=== PATIENT | female | born 1970 | race Caucasian/White ===

== ENCOUNTER 2016-06-15 09:06 | Inpatient (IN) | payer MEDICAID ==
[~2016-06-15] VITALS: Ht 152.4 cm; Wt 62.8 kg
[~2016-06-15 09:06] MED LIST: CIPR500T4 PO; HYDR-3498 PO; IBUP-1542 PO; IBUP800T25 PO
[2016-06-15] MEDS ORDERED: ASPIRIN 81 MG TAB PO STA (09:56)
[2016-06-15] MEDS ORDERED: NITROGLYCERIN 2% 1 GM OINT PKT TD STA (09:56)
[2016-06-15] MEDS ORDERED: NITROGLYCERIN (SL) 0.4 MG TAB SL PRN (10:00)
[2016-06-15] MEDS ORDERED: ONDANSETRON 4 MG INJ IV STA (10:00)
--- NOTE | 2016-06-15 10:55 | RADRPT ---
PROCEDURE: US Abdomen (right upper quadrant). CLINICAL INDICATION: Epigastric pain TECHNIQUE: Multiple real-time longitudinal and transverse images of the right upper quadrant of th e abdomen were acquired utilizing a curved array transducer. Images were reviewed on a high-resoluti on PACS workstation. COMPARISON: None FINDINGS: The liver is normal in size and demonstrates normal echogenicity. No focal intrahepatic mass is id entified. The gallbladder is normal in appearance. There is no pericholecystic fluid or gallbladde r wall thickening. No intra or extrahepatic biliary dilatation is seen. The common bile duct measur es 3.4 mm in maximal dimension. The portal and hepatic veins are patent demonstrating normal directi onal flow. The visualized portions of the pancreas are unremarkable with obscuration of the tail of the pancreas. No free fluid is identified. The right kidney measures 9.7 cm in length. There is normal echogenicity within the right kidney. There is no perinephric fluid collection. No hydronephrosis, mass, or calculus is seen. IMPRESSION: 1. Unremarkable right upper quadrant ultrasound. RPTAT: .Yina Alas MD, Date Time Electronically viewed and signed by .Yina Alas MD, on 06/15/2016 10:54 .G/
--- NOTE | 2016-06-15 11:15 | RADRPT ---
PROCEDURE: Chest x-ray CLINICAL INDICATION: Chest pain TECHNIQUE: Chest single view COMPARISON: None FINDINGS: The heart is normal in size. The pulmonary vessels are normal in caliber. The lungs are clear. Th e costophrenic angles are sharp. The visualized bony thorax is unremarkable. IMPRESSION: No acute cardiopulmonary disease. RPTAT: HH .Juan Saunders MD, Date Time Electronically viewed and signed by .Juan Saunders MD, MD on 06/15/2016 11:14 .W/
[2016-06-15 11:41] LABS: ADD SCAN DIFF NO
[2016-06-15 11:45] LABS: BASOPHILS % 0.4 % (0.0-2.0); EOSINOPHILS # 0.1 10^3/ul (0.0-0.5); EOSINOPHILS % 0.9 % (0.0-7.0); HEMATOCRIT 39.1 % (37.0-47.0); HEMOGLOBIN 12.5 g/dl (12.0-16.0); LYMPHOCYTES # 1.1 10^3/ul (0.8-2.9); MEAN CORPUSCULAR HEMOGLOBIN 27.4 pg (29.0-33.0); MEAN CORPUSCULAR VOLUME 85.6 fl (82.0-101.0); MEAN PLATELET VOLUME 8.8 fl (7.4-10.4); MONOCYTE # 0.2 10^3/ul (0.3-0.9); MONOCYTES % 3.3 % (0.0-11.0); NEUTROPHIL # 4.3 10^3/ul (1.6-7.5); NEUTROPHILS % 74.7 % (39.0-77.0); PLATELET COUNT 319 10^3/UL (140-415); RED BLOOD COUNT 4.57 10^6/ul (4.20-5.40); RED CELL DISTRIBUTION WIDTH 12.3 % (11.5-14.5); WHITE BLOOD COUNT 5.7 10^3/ul (4.8-10.8)
[2016-06-15 11:58] LABS: PROTIME 13.2 Sec (12.2-14.2)
[2016-06-15 11:59] LABS: PARTIAL THROMBOPLASTIN TIME 22.8 Sec (25.0-35.0)
[2016-06-15 12:01] LABS: CHLORIDE 108 mmol/L (97-110); POTASSIUM 3.6 mmol/L (3.5-5.1); SODIUM 146 mmol/L (135-144)
[2016-06-15 12:04] LABS: ANION GAP 23 (8-16); BLOOD UREA NITROGEN 12 mg/dl (7-20); CARBON DIOXIDE 19 mmol/L (21-31); CREATININE 0.62 mg/dl (0.44-1.00); GLUCOSE 120 mg/dl (70-220)
[2016-06-15 12:05] LABS: CALCIUM 9.6 mg/dl (8.4-10.2)
[2016-06-15 12:19] LABS: TROPONIN-I < 0.012 ng/ml (0.00-0.12)
[2016-06-15] MEDS ORDERED: ONDANSETRON 4 MG INJ IV PRN ×2 (12:30→14:00)
[2016-06-15] MEDS ORDERED: ACETAMINOPHEN 325 MG TAB PO PRN ×2 (12:30→14:00)
[2016-06-15 12:34] LABS: ALBUMIN 4.9 g/dl (3.3-4.9)
[2016-06-15 12:37] LABS: BILIRUBIN,INDIRECT 0.4 mg/dl (0-1.1); BILIRUBIN,TOTAL 0.4 mg/dl (0.2-1.3); TOTAL PROTEIN 8.4 g/dl (6.1-8.1)
[2016-06-15] MEDS ORDERED: SITA100T8 PO (12:44)
--- NOTE | 2016-06-15 13:09 | ERA ---
ER Documentation Chief Complaint Date/Time DATE: 06/15/16 TIME: 13:07 Chief Complaint n/v x alferd with dizziness HPI Patient is a 45-year-old female with diabetes and hypertension who presents with chest pain. She has never had this in the past. The pain is in the mid chest. The symptoms started today. She feels dizzy and has nausea. She was complaining of shortness of breath as well. She does not know the name of her primary doctor. She has had no treatment as of yet. ROS All systems reviewed and are negative except as per history of present illness. Medications Home Meds Reported Medications Sitagliptin* (Januvia*) 100 Mg Tablet, 100 MG PO QAM, #30 TAB 06/15/16 Discontinued Scripts Ibuprofen* (Motrin*) 600 Mg Tab, 600 MG PO Q6H Y for PAIN AND OR ELEVATED TEMP, #30 TAB Prov:JUAN DIEGO GAINES. TUBE BENDER HAND 10/04/15 Ciprofloxacin Hcl* (Ciprofloxacin Hcl*) 500 Mg Tablet, 500 MG PO BID for 7 Days , TAB Prov:DRAKE GRAHAM 01/18/15 Ibuprofen* (Ibuprofen*) 800 Mg Tablet, 800 MG PO Q6H Y for PAIN, #20 TAB Prov:SANTOS,DRAKE 01/18/15 Hydrocodone Bit-Acetaminophen* (Rodman*) 5-325 Mg Tab, 1 TAB PO Q4H Y for PAIN LEVEL 6-10, #20 TAB Prov:DRAKE GRAHAM 01/18/15 Allergies Allergies: Coded Allergies: No Known Allergy (Unverified , 06/15/16) PMhx/Soc Medical and Surgical Hx: pt denies Medical Hx, pt denies Surgical Hx History of Surgery: No Anesthesia Reaction: No Hx Neurological Disorder: No Hx Respiratory Disorders: No Hx Cardiac Disorders: No Hx Psychiatric Problems: No Hx Miscellaneous Medical Probl: Yes (DM) Hx Alcohol Use: No Hx Substance Use: No Hx Tobacco Use: No Smoking Status: Never smoker FmHx Family History: No diabetes Physical Exam Vitals Vital Signs Date Time Temp Pulse Resp B/P Pulse Ox O2 Delivery O2 Flow Rate FiO2 06/15/16 09:10 98.3 93 18 149/78 100 Physical Exam Const: No acute distress Head: Atraumatic Eyes: Normal Conjunctiva ENT: Normal External Ears, Nose and Mouth. Neck: Full range of motion..~ No meningismus. Resp: Clear to auscultation bilaterally Cardio: Regular rate and rhythm, no murmurs Abd: Soft, non tender, non distended. Normal bowel sounds Skin: No petechiae or rashes Back: No midline or flank tenderness Ext: No cyanosis, or edema Neur: Awake and alert Psych: Normal Mood and Affect Result Diagram: 06/15/16 1125 06/15/16 1125 Results 24 hrs Laboratory Tests Test 06/15/16 11:25 Activated Partial Thromboplast Time 22.8Sec Alanine Aminotransferase (ALT/SGPT) 30IU/L Albumin 4.9g/dl Alkaline Phosphatase 71IU/L Anion Gap 23 Aspartate Amino Transf (AST/SGOT) 30IU/L Basophils # 0.010^3/ul Basophils % 0.4% Blood Urea Nitrogen 12mg/dl Calcium Level 9.6mg/dl Carbon Dioxide Level 19mmol/L Chloride Level 108mmol/L Creatinine 0.62mg/dl Direct Bilirubin 0.00mg/dl Eosinophils # 0.110^3/ul Eosinophils % 0.9% Glucose Level 120mg/dl Hematocrit 39.1% Hemoglobin 12.5g/dl INR International Normalized Ratio 1.00 Indirect Bilirubin 0.4mg/dl Lipase 73U/L Lymphocytes # 1.110^3/ul Lymphocytes % 20.0% Mean Corpuscular Hemoglobin 27.4pg Mean Corpuscular Hemoglobin Concent 32.0g/dl Mean Corpuscular Volume 85.6fl Mean Platelet Volume 8.8fl Monocytes # 0.210^3/ul Monocytes % 3.3% Neutrophils # 4.310^3/ul Neutrophils % 74.7% Nucleated Red Blood Cells # 0.010^3/ul Nucleated Red Blood Cells % 0.0/100WBC Platelet Count 28435^3/UL Potassium Level 3.6mmol/L Prothrombin Time 13.2Sec Prothrombin Time Ratio 1.0 Red Blood Count 4.5710^6/ul Red Cell Distribution Width 12.3% Sodium Level 146mmol/L Total Bilirubin 0.4mg/dl Total Protein 8.4g/dl Troponin I < 0.012ng/ml White Blood Count 5.710^3/ul Current Medications Medications (Trade) Dose Ordered Sig/Anselmo Route PRN Reason Start Time Stop Time Status Last Admin Dose Admin Aspirin (Aspirin) 162 mg ONCE STAT PO 06/15/16 09:56 06/15/16 09:57 DC 06/15/16 10:21 Nitroglycerin (Nitroglycerin 2% Oint) 1 inch ONCE STAT TD 06/15/16 09:56 06/15/16 09:57 DC 06/15/16 10:53 Nitroglycerin (Nitroglycerin (Sl Tab) 0.4 Mg) 1 tab Q5M UP TO 3 DOSES PRN SL CHEST PAIN 06/15/16 10:00 06/15/16 10:21 Ondansetron HCl (Zofran Inj) 4 mg ONCE STAT IV 06/15/16 10:00 06/15/16 10:02 DC 06/15/16 10:21 Ondansetron HCl (Zofran Inj) 4 mg ER BRIDGE PRN IV NAUSEA AND/OR VOMITING 06/15/16 12:30 06/16/16 12:29 Acetaminophen (Tylenol Tab) 650 mg ER BRIDGE PRN PO MILD PAIN/FEVER 06/15/16 12:30 06/16/16 12:29 Procedures/MDM Ultrasound of the gallbladder negative per radiology. Chest x-ray negative per radiology. EKG read by me: Rate/Rhythm: Regular rate and rhythm at a normal rate Intervals: Normal Impression: No evidence of ischemia or arrhythmia Patient is a 45-year-old female with diabetes and hypertension who presents with chest pain and nausea. Given her risk factors I am concerned about potential acute coronary syndrome. The patient will need admission for cardiac workup. I spoke with Dr. Higuera from the panel team for admission to a telemetry bed. The patient was given aspirin nitroglycerin empirically as well as Zofran. Ultrasound of gallbladder was negative for gallbladder disease. I doubt pneumonia, pneumothorax, pulmonary embolism, or aortic dissection. Departure Diagnosis: Primary Impression: Chest pain Qualified Code: R07.9 - Chest pain, unspecified type Additional Impression: Nausea and vomiting Qualified Code: R11.2 - Non-intractable vomiting with nausea, unspecified vomiting type Condition: KAYLEE Crespo MD Jun 15, 2016 13:09
[2016-06-15] MEDS ORDERED: HYDROCODONE/APAP (5/325) TAB PO PRN ×2 (14:00)
[2016-06-15] MEDS ORDERED: GLUCAGON 1 MG INJ IM PRN (14:00)
[2016-06-15] MEDS ORDERED: DEXTROSE 50% 50 ML SYRINGE IV PRN ×2 (14:00)
[2016-06-15] MEDS ORDERED: ACETAMINOPHEN 650 MG SUPP PR PRN (14:00)
[2016-06-15] MEDS ORDERED: morphine 2 MG INJ IV PRN (14:00)
[2016-06-15] MEDS ORDERED: BISACODYL 10 MG SUPP PR PRN (14:00)
[2016-06-15] MEDS ORDERED: GLUCOSE GEL 15 GRAM TUBE PO PRN ×2 (14:00)
[2016-06-15] MEDS ORDERED: NACL 0.9% 3 ML SYG IV SCH (14:00)
[2016-06-15] MEDS ORDERED: DOCUSATE SODIUM 100 MG CAP PO PRN (14:00)
[2016-06-15] MEDS ORDERED: GLUCOSE GEL 15 GRAM TUBE BUCCAL PRN (14:00)
[2016-06-15 16:47] LABS: CREATINE KINASE 88 IU/L (23-200)
[2016-06-15 17:00] LABS: CK-MB < 0.22 ng/ml (0.0-2.4); TROPONIN-I < 0.012 ng/ml (0.00-0.12)
--- NOTE | 2016-06-15 17:49 | HP ---
DATE OF ADMISSION: 06/15/2016 CHIEF COMPLAINT: Chest pain. HISTORY OF PRESENT ILLNESS: This is a 45-year-old female with reported history of prediabetes and a lso obesity who came into [facility] due to reports of chest pain. According to gene cortez patient, she had been having chest pain roughly since Tuesday06/12/2016. She did report that [place] chest pain was intermittent and also pressure-like in nature, nonradiating. She also did report that at times it was also reproducible upon palpation. She did report that she woke up on the morni ng of 06/15/2016, again with reports of pain that was not necessarily notable on exertion but did scales ve it intermittently. Again, she did report that this chest pain was pressure like in nature, 7/10 in intensity, nonradiating. She did have some associated nausea and vomiting with it. No reported sick contacts. She did go to [facility] due to the aforementioned issues. Upon f urther examination, she did have troponins x2 drawn which were essentially negative. Chest x-ray th at she did have done showed no acute cardiopulmonary disease. The patient also did have some nausea and vomiting for which we did get a gallbladder ultrasound that was unremarkable for any kind of ri ght upper quadrant abdominal pain. Additionally, her lipase levels were also noted to be normal. Gene cortez patient also of note had serum HCG which was negative as well. Currently, the patient does repor t having intermittent chest pain. This pain is reproducible upon palpation. She does report not scales ving any significant history of family heart disease, although she does not have any confirmation of this. We will evaluate her for the aforementioned issues. MEDICAL AND SURGICAL HISTORY 1. Reported diabetes. 2. Reported dyslipidemia. SOCIAL HISTORY: Patient denies any cigarette smoking, alcohol consumption or illicit drug use. FAMILY HISTORY: Noncontributory. ALLERGIES: NO KNOWN ALLERGIES. REVIEW OF SYSTEMS: A 12-point review of systems obtained and is entirely negative except as mention ed in the history of present illness. PHYSICAL EXAMINATION: VITAL SIGNS: Temperature 97.7, pulse is 78, respiratory rate is 16, blood pressure 106/62, pulse ox imetry 100% on room air. GENERAL: This is a 45-year-old female who appears stated age, no acute signs or symptoms of distres s at this time. EYES: Pupils equal, round and reactive to light. Anicteric sclerae. NECK: Supple, nontender. No JVD. CARDIAC: S1, S2 auscultated, regular rate to tachycardic. PULMONARY: Clear to auscultation bilaterally. No wheezing or rhonchi. ABDOMEN: Soft, nontender, nondistended. EXTREMITIES: No pitting edema in bilateral lower extremities. SKIN: Warm, dry, and intact. NEUROLOGIC: Alert, oriented x3. LABORATORY DATA: WBC is 5.7, hemoglobin is 12.5, hematocrit 39.1 and platelets 319. Sodium is 146, potassium 3.6, BUN is 12, creatinine 0.62. IMAGIN. Chest x-ray done on 06/15/2016 showed no acute cardiopulmonary disease. 2. Gallbladder ultrasound done on 06/15/2016 showed unremarkable right upper quadrant ultrasound. IMPRESSION AND PLAN: 1. Chest pain. Follow up on echocardiogram. We will follow up on serial troponins upon transfer t o telemetry. Rule out acute coronary syndrome. 2. Prediabetes. Monitor blood glucose. Will provide with insulin regimen as needed. Lifestyle mo difications to be advised. 3. Gastroesophageal reflux disease prophylaxis: H2 nitish. 4. Deep venous thrombosis prophylaxis, sequential compression devices. ADMISSION PROCESS TIME: 40 minutes. Discussed plan of care with Dr. Bond. Dictated By: DIA NORTON QUALITY TECH for AROLDO FUCHS/MARICEL Conf#: [id number] DID#: [id number]
[2016-06-15] MEDS: INSULIN ASPART [NOVOLOG] 3 ML PEN SC SCH ×2 (18:00→21:00)
[2016-06-15 18:08] VITALS: TEMP 98.1
[2016-06-15 20:46] VITALS: BMI 27.1
[2016-06-15 20:51] VITALS: BP 112/74; PULSE 73; RESP 20
[2016-06-15] MEDS: FAMOTIDINE 20 MG INJ IV SCH (21:09)
[2016-06-15 22:32] LABS: CREATINE KINASE 94 IU/L (23-200)
[2016-06-15 22:47] LABS: CK-MB < 0.22 ng/ml (0.0-2.4)
[2016-06-15 23:07] VITALS: PULSE 83
[2016-06-15 23:30] VITALS: BP 132/79; PULSE 71; RESP 18
[2016-06-15 23:42] VITALS: Ht 152.4 cm; Wt 62.8 kg
[2016-06-16] VITALS (11 sets, daily range): BP systolic 129–144; BP diastolic 69–87; PULSE 65–74; RESP 18–19
[2016-06-16 01:28] LABS: TROPONIN-I 0.013 ng/ml (0.00-0.12)
[2016-06-16 07:04] LABS: ADD SCAN DIFF NO
[2016-06-16 07:07] LABS: ALBUMIN 4.4 g/dl (3.3-4.9)
[2016-06-16 07:08] LABS: POTASSIUM 3.9 mmol/L (3.5-5.1)
[2016-06-16 07:10] LABS: ALBUMIN/GLOBULIN RATIO 1.51; BILIRUBIN,INDIRECT 0.5 mg/dl (0-1.1); BILIRUBIN,TOTAL 0.5 mg/dl (0.2-1.3); CREATININE 0.65 mg/dl (0.44-1.00); TOTAL PROTEIN 7.3 g/dl (6.1-8.1)
[2016-06-16 07:11] LABS: CALCIUM 9.3 mg/dl (8.4-10.2); CHOL/HDL RATIO 4.1 RATIO; PHOSPHORUS 3.9 mg/dl (2.5-4.9)
[2016-06-16 07:20] LABS: BASOPHILS % 0.5 % (0.0-2.0); EOSINOPHILS # 0.1 10^3/ul (0.0-0.5); EOSINOPHILS % 2.1 % (0.0-7.0); HEMATOCRIT 36.5 % (37.0-47.0); MEAN CORPUSCULAR HGB CONC 32.9 g/dl (32.0-37.0); MEAN CORPUSCULAR VOLUME 85.3 fl (82.0-101.0); MEAN PLATELET VOLUME 9.1 fl (7.4-10.4); MONOCYTE # 0.4 10^3/ul (0.3-0.9); MONOCYTES % 6.8 % (0.0-11.0); NEUTROPHIL # 3.5 10^3/ul (1.6-7.5); NEUTROPHILS % 57.3 % (39.0-77.0); PLATELET COUNT 326 10^3/UL (140-415); RED BLOOD COUNT 4.28 10^6/ul (4.20-5.40); RED CELL DISTRIBUTION WIDTH 12.4 % (11.5-14.5); WHITE BLOOD COUNT 6.2 10^3/ul (4.8-10.8)
[2016-06-16 07:28] LABS: T3 UPTAKE 34.8 % (23.5-40.5)
[2016-06-16 07:42] LABS: THYROID STIMULATING HORMONE 3.48 MIU/L (0.465-4.680)
[2016-06-16 07:45] LABS: CALCIUM 9.4 mg/dl (8.4-10.2); CREATININE 0.67 mg/dl (0.44-1.00)
[2016-06-16] MEDS: INSULIN ASPART [NOVOLOG] 3 ML PEN SC SCH ×4 (08:00→20:53)
[2016-06-16] MEDS: FAMOTIDINE 20 MG INJ IV SCH (08:36)
--- NOTE | 2016-06-16 19:14 | RADRPT ---
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 Physician: DIA NORTON Quality: Adequate Procedures: Transthoracic echocardiogram with complete 2D, M-Mode, and doppler examination. Indications: Chest Pain. 2D/M Mode Doppler Measurement Value Normal Ranges Measurement Value Normal Ranges LVIDd 2D 4.7 3.5 - 5.6 cm AV Peak Jaiden 1.4 m/sec LVIDs 2D 2.9 2.1 - 4.1 cm AV Peak PG 8.0 mmHg LVPWd 2D 0.8 0.6 - 1.1 cm LVOT Peak Jaiden 1.0 m/sec IVSd 2D 0.9 0.6 - 1.1 cm LVOT Peak PG 3.8 mmHg AoR Diam 2D 2.4 2.0 - 3.7 cm MV E Peak Jaiden 1.0 m/sec EDV 2D 103.3 cm3 MV A Peak Jaiden 0.8 m/sec ESV 2D 25.5 cm3 MV E/A 1.3 LA Dimen 2D 3.3 2.3 - 4.0 cm MV Decel Time 171 msec MV Decel [place] 6 MV E/A 1.3 Findings Left Ventricle: Normal left ventricular systolic function. Normal left ventricular cavity size. Normal left ventricular wall thickness. Ejection fraction is visually estimated at 65 %. Abnormal Diastolic Function. Right Ventricle: Normal right ventricular size. Normal right ventricular systolic function. Left Atrium: The left atrium is normal in size. Right Atrium: The right atrium is normal in size. Mitral Valve: Mild mitral leaflet calcification. Trace mitral regurgitation. Aortic Valve: Trileaflet aortic valve. Trace aortic valve regurgitation. Tricuspid Valve: Normal appearance and function of the tricuspid valve with trace physiologic regurgitation. Pulmonic Valve: There is trace pulmonic regurgitation. Pericardium: Normal pericardium with no significant pericardial effusion. Aorta: Normal aortic root. IVC: Normal size and normal respiratory collapse consistent with normal right atrial pressure. Conclusions 1.Normal left ventricular systolic function. Normal left ventricular cavity size. Normal left ventricular wall thickness. Ejection fraction is visually estimated at 65 %. Abnormal Diastolic Function. 2.Normal right ventricular size. Normal right ventricular systolic function. 3.Mild mitral leaflet calcification. Trace mitral regurgitation. 4.Trileaflet aortic valve. Trace aortic valve regurgitation. 5.Normal appearance and function of the tricuspid valve with trace physiologic regurgitation. 6.There is trace pulmonic regurgitation. Electronically Signed By: Levon Knox 16-Jun-2016 19:13:02 -0700 Patient Name: BARRIE MEJIA Study Date: 15-Jun-2016 [id number]
[2016-06-16] MEDS: FAMOTIDINE 20 MG TAB PO SCH (20:54)
[2016-06-17] VITALS (10 sets, daily range): BP systolic 117–130; BP diastolic 64–77; PULSE 56–88; RESP 18–21
[2016-06-17] MEDS: INSULIN ASPART [NOVOLOG] 3 ML PEN SC SCH ×3 (08:00→18:05)
[2016-06-17] MEDS: FAMOTIDINE 20 MG TAB PO SCH (09:00)
--- NOTE | 2016-06-17 15:36 | PN ---
Date/Time of Note Date/Time of Note LATE ENTRY DATE: 06/16/16 Assessment/Plan VTE Prophylaxis VTE Prophylaxis Intervention: SCD's Lines/Catheters IV Catheter Type (from Nrsg): Saline Lock Urinary Cath still in place: No Assessment/Plan Chief Complaint/Hosp Course 1. Chest pain. Awaiting echocardiogram. monitor troponin. cont telemetry monitoring. 2. Prediabetes. Monitor blood glucose. Lifestyle modifications was advised 3. Gastroesophageal reflux disease prophylaxis: H2 nitish. 4. Deep venous thrombosis prophylaxis, sequential compression devices. DISPO/PLAN: Awaiting echocardiogram. cont telemetry monitoring. d/c when medically stable Discussed plan of care with Dr. Bond Problems: Subjective 24 Hr Interval Summary Free Text/Dictation no s/s of distress. comfortable at present Exam/Review of Systems Vital Signs Vitals Vital Signs Date Time Temp Pulse Resp B/P Pulse Ox O2 Delivery O2 Flow Rate FiO2 06/17/16 13:48 56 06/17/16 12:20 97.7 18 123/74 100 06/17/16 04:00 Room Air Intake and Output 06/16/16 06/16/16 06/17/16 14:59 22:59 06:59 Intake Total 900 ml 400 ml Balance 900 ml 400 ml Exam Constitutional: alert, oriented Psych: nl mood/affect Head: normocephalic Eyes: nl conjunctiva Neck: supple, non-tender, No jvd Respiratory: clear to auscultation, normal air movement Cardiovascular: regular rate and rhythm Gastrointestinal: soft, non-tender Musculoskeletal: nl extremities to inspection, nl gait and stance Extremities: normal pulses Neurological: nl mental status, nl speech, nl strength Skin: nl turgor, Results Result Diagram: 06/16/16 0557 06/16/16 0557 Results 24 hrs Laboratory Tests Test 06/16/16 18:30 06/16/16 20:53 06/17/16 08:07 Bedside Glucose 141 90 99 Medications Medications Current Medications Ondansetron HCl (Zofran Inj) 4 mg Q6H PRN IV NAUSEA AND/OR VOMITING; Start at 14:00 Acetaminophen (Tylenol Tab) 650 mg Q6H PRN PO PAIN LEVEL 1-3 OR FEVER; Start at 14:00 Acetaminophen (Tylenol Supp) 650 mg Q6H PRN AR PAIN LEVEL 1-3 OR FEVER; Start 06/15/16 at 14:00 Acetaminophen/ Hydrocodone Bitart ([place] (5/325)) 1 tab Q6H PRN PO MODERATE PAIN LEVEL 4-6; Start 06/15/16 at 14:00 Acetaminophen/ Hydrocodone Bitart ([place] (5/325)) 2 tab Q6H PRN PO SEVERE PAIN LEVEL 7-10; Start 06/15/16 at 14:00 Morphine Sulfate (morphine) 2 mg Q4H PRN IV SEVERE PAIN LEVEL 7-10; Start 06/15 at 14:00 Docusate Sodium (Colace) 100 mg Q12H PRN PO CONSTIPATION; Start 06/15/16 at 14: 00 Bisacodyl (Dulcolax Supp) 10 mg DAILY PRN AR CONSTIPATION; Start 06/15/16 at 14 :00 Miscellaneous Information 1 ea NOTE XX ; Start 06/15/16 at 14:00 Glucose (Glutose) 15 gm Q15M PRN PO DECREASED GLUCOSE; Start 06/15/16 at 14:00 Glucose (Glutose) 22.5 gm Q15M PRN PO DECREASED GLUCOSE; Start 06/15/16 at 14: 00 Dextrose (D50w Syringe) 25 ml Q15M PRN IV DECREASED GLUCOSE; Start 06/15/16 at 14:00 Dextrose (D50w Syringe) 50 ml Q15M PRN IV DECREASED GLUCOSE; Start 06/15/16 at 14:00 Glucagon (Glucagen) 1 mg Q15M PRN IM DECREASED GLUCOSE; Start 06/15/16 at 14:00 Glucose (Glutose) 15 gm Q15M PRN BUCCAL DECREASED GLUCOSE; Start 06/15/16 at 14 :00 Famotidine (Pepcid) 20 mg BID PO Last administered on 06/16/16t 20:54; Admin Dose 20 MG; Start 06/16/16 at 21:00 DIA NORTON Jun 17, 2016 15:36
--- NOTE | 2016-06-17 15:38 | PDOCDIS ---
Discharge Instructions DIAGNOSIS Discharge Diagnosis: 1. chest pain. 2. hx diabetes HOME CARE INSTRUCTIONS: Special Diet: carbohydrate controlled FOLLOW UP/APPOINTMENTS Appointments 1. Follow up with your primary care provider in one week DIA NORTON Jun 17, 2016 15:38
== END 2016-06-17 18:30 | disposition home or self-care (01) | DRG 313 ==
LOC: FTE 09:06 → MS4 12:30
PROVIDERS: ADMIT Family Medicine; ATTEND Family Medicine
DX: R07.89 Other chest pain (principal); E66.9 Obesity, unspecified; R73.03 Prediabetes; K21.9 Gastro-esophageal reflux disease without esophagitis; Z68.27 Body mass index [BMI] 27.0-27.9, adult; R11.2 Nausea with vomiting, unspecified
CPT/HCPCS: 36415; 71010; 76705; 80048; 80053; 80061; 80076; 82550; 82553; 82962; 83036; 83690; 83735; 84100; 84436; 84443; 84479; 84484; 84703; 85025; 85610; 85730; 93005; 93306; 96374; 96375; J1815; J2405

== ENCOUNTER 2017-06-24 18:06 | Emergency (ER) | END 2017-06-24 23:33 | disposition home or self-care (01) ==